=== PATIENT | female | born 1965 | race Caucasian/White ===

== ENCOUNTER → 2017-04-06 | Outpatient (CLI) | payer MEDICARE, OTHER | LOC: SL 20:30 | DX: G47.30 Sleep apnea, unspecified (principal); R09.02 Hypoxemia; E66.9 Obesity, unspecified ==

== ENCOUNTER → 2017-04-20 | Outpatient (CLI) | payer MEDICARE, OTHER | LOC: SL 20:30 | DX: R09.2 Respiratory arrest (principal); J44.9 Chronic obstructive pulmonary disease, unspecified ==

== ENCOUNTER → 2017-05-12 | Outpatient (CLI) | payer MEDICARE, OTHER | LOC: SL 21:30 | PROVIDERS: ATTEND Internal Medicine Pulmonary Disease | DX: G47.33 Obstructive sleep apnea (adult) (pediatric) (principal) ==

== ENCOUNTER → 2017-05-17 | Outpatient (CLI) | payer MEDICARE, OTHER | LOC: SL 20:38 | DX: G47.33 Obstructive sleep apnea (adult) (pediatric) (principal) ==

== ENCOUNTER 2018-04-18 21:08 | Emergency (ER) | payer MEDICARE, MEDICAID ==
--- NOTE | 2018-04-18 21:23 | ED.PDOC ---
History of Present Illness - General Chief Complaint: General Stated Complaint: rt foot pain, edema Time Seen by Provider: 04/18/18 21:17 Source: patient Exam Limitations: no limitations - History of Present Illness Initial Comments: Yamile Cruz 52 y/o female brought by EMS with sharp pain right leg and swelling for the last one week.She is presently at [facility] for rehab after a closed head injury in Aug 2017 was comatose [place] [facility] where she was placed on ventilator and tracheostomy was done but gradually weaned off vent and tracheostomy..Patient has a hard time recalling incident stated fell 3 x in one day then the last fall made her unresponsive..Had been ambulating at [facility].Medical records at [facility] -showed hx of HTN,DM,CVA unspecified,ischemic encephlopathy,TAYA.also stated unable to sllep at night since pain at the soles of both feet and also both legs gets restless.Patient given Lovenox 40 mg SQ lovenox daily at [facility] Timing/Duration: other - one week Severity: moderate Improving Factors: nothing Worsening Factors: nothing Associated Symptoms: other - see hpi Allergies/Adverse Reactions: Allergies Ciprofloxacin [From Cipro] Allergy (Verified 04/18/18 21:29) Ketorolac Tromethamine [From Toradol] Allergy (Verified 04/18/18 21:29) Sulfamethoxazole w/Trimethoprim [From Bactrim] Allergy (Verified 04/18/18 21:29) Review of Systems - Review of Systems Constitutional: States: no symptoms reported EENTM: States: no symptoms reported Respiratory: States: no symptoms reported Cardiology: States: no symptoms reported Gastrointestinal/Abdominal: States: no symptoms reported Genitourinary: States: no symptoms reported Musculoskeletal: States: see HPI Skin: States: no symptoms reported Neurological: States: see HPI Past Medical History (General) - Patient Medical History Hx Stroke: Yes Hx Hypertension: Yes Hx Diabetes: Yes Hx Cancer: Yes - right kidney in remission Hx Other PMH: Yes - taya,ischemic encephalopathy Surgical History: other - bilateral hip,hysterectomy,hernia repair,nephrectomy righ Family Medical History - Family History Mother Family History: Unknown Hx Family Diabetes: Yes - dad Hx Family Cancer: Yes - brain -mom Physical Exam - Physical Exam General Appearance: Alert, Comfortable, No apparent distress Eye Exam: bilateral normal Ears, Nose, Throat: hearing grossly normal, normal ENT inspection, normal pharynx Neck: non-tender, full range of motion, supple Respiratory: chest non-tender, lungs clear, normal breath sounds Cardiovascular/Chest: normal peripheral pulses, regular rate, rhythm, no murmur Peripheral Pulses: radial,right: 2+, radial,left: 2+ Gastrointestinal/Abdominal: non tender, soft Back Exam: no CVA tenderness, no vertebral tenderness Extremity: no calf tenderness, pedal edema - right >left leg;no venous cords palpated ,negative Homans sign both legs Neurologic: alert, oriented x 3 Skin Exam: normal color, warm/dry Progress - Progress Progress: 04/18/18 22:27 Vital Signs - 8 hr 04/18/18 21:20 Temperature 98.2 F Pulse Rate [ 82 left] Respiratory 18 Rate Blood Pressure 124/90 [left] O2 Sat by Pulse 95 Oximetry - EKG/XRAY/CT CT Ordered: Yes - CTA-chest:no central or segmental PE Departure - Departure Clinical Impression: Leg pain, bilateral, Swelling of both lower extremities Time of Disposition: 01:40 Disposition: Discharge to SNF Condition: Fair Departure Forms: ED Discharge - Pt. Copy, Patient Portal Self Enrollment Referrals: XANDER BLANCA [Primary Care Provider] - 1-2 Weeks Additional Instructions: Continue with all home medications;Scheduled for bilateral Venous doppler both lower extremities outpatient 19 April 2018 at [address] [facility] [place]-X-ray dept.
[2018-04-18] MEDS ORDERED: fentaNYL CITRATE INJ 50 MCG/ML AMP IV ONE (21:49)
[2018-04-18 22:54] VITALS: O2SAT 97
[2018-04-18] MEDS ORDERED: SODIUM CHLORIDE 0.9% 1000ML 500 ML IVS ONE (23:42)
--- NOTE | 2018-04-18 23:55 | CT ---
EXAM DESCRIPTION: CTA Chest CLINICAL HISTORY: elevated d-dimer COMPARISON: None. TECHNIQUE: Axial CT images of the chest were acquired after the administration of intravenous contrast. Coronal and sagittal reconstructions were obtained. 3-D postprocessing was acquired at an independent workstation. This exam was performed according to our departmental dose-optimization program which includes use of Automated Exposure Control, adjustment of the mA and/or kV according to patient size and/or use of iterative reconstruction technique. FINDINGS: Neck base: Unremarkable. Mediastinum: Unremarkable. Lymph Nodes: No lymphadenopathy. Heart and pericardium: No right heart strain or pericardial effusion. Aorta: Unremarkable. Pulmonary Artery: No central or segmental pulmonary embolism. Suboptimal evaluation of subsegmental pulmonary arterial vessels secondary to motion. Central Airways: Patent. Pleura: No pneumothorax or pleural effusion. Lungs: Linear atelectasis of the lingula. Lungs otherwise clear. Upper abdomen: 1.5 cm low-attenuation lesion within the right hepatic lobe, likely a small cyst or hemangioma. Otherwise unremarkable upper abdomen. Bones and soft tissues: No acute osseous or soft tissue abnormalities. IMPRESSION: No central pulmonary embolism. Suboptimal evaluation of smaller branch vessels secondary to motion. Electronically signed by: Skip Ramirez MD 04/18/2018 11:53 PM MERCHANDISE APPRAISER
[2018-04-19 01:35] VITALS: BP 136/74
[2018-04-19 02:03] VITALS: TEMP 97.8
== END 2018-04-19 01:55 ==
LOC: ER 21:08
DX: M79.604 Pain in right leg (principal); M79.605 Pain in left leg; M79.89 Other specified soft tissue disorders; I10 Essential (primary) hypertension; E11.9 Type 2 diabetes mellitus without complications; Z86.73 Personal history of transient ischemic attack (TIA), and cerebral infarction without residual deficits; Z88.1 Allergy status to other antibiotic agents; Z88.2 Allergy status to sulfonamides
CPT/HCPCS: 36415; 71275; 80048; 80076; 82550; 82553; 83880; 84443; 84484; 84550; 85025; 85379; 85610; 85730; J3010; J7030

== ENCOUNTER → 2018-04-19 | Outpatient (CLI) | payer MEDICARE, MEDICAID ==
--- NOTE | 2018-04-19 10:55 | US ---
EXAM DESCRIPTION: Venous,Lower Extremity RT: ULTRASOUND. CLINICAL HISTORY: BILATERAL LOWER EXTREMITY PAIN AND SWELLING COMPARISON: None Available. TECHNIQUE: Chance-scale and doppler sonographic evaluation of the deep venous system of the right lower extremity. FINDINGS: Doppler evaluation shows normal color flow and normal phasicity and augmentation of the right common femoral vein, femoral vein, popliteal vein, greater saphenous vein, peroneal, anterior and posterior tibial vein. The right lower extremity deep veins showed normal occlusion with transducer pressure. Chance-scale survey showed no echogenic thrombus within these veins. IMPRESSION: 1. Duplex ultrasound evaluation of the right lower extremity deep venous system showing no evidence of thrombosis. Electronically signed by: Arvin Dutton MD 04/19/2018 10:53 AM DUST COLLECTOR OPERATOR
--- NOTE | 2018-04-19 10:56 | US ---
EXAM DESCRIPTION: Venous,Lower Extremity LT: ULTRASOUND. CLINICAL HISTORY: BILATERAL LOWER EXTREMITY PAIN AND SWELLING COMPARISON: None Available. TECHNIQUE: Chance-scale and doppler sonographic evaluation of the deep venous system of the left lower extremity. FINDINGS: Doppler evaluation shows normal color flow and normal phasicity and augmentation of the left common femoral vein, femoral vein, popliteal vein, greater saphenous vein, peroneal, and posterior tibial vein. The left lower extremity deep veins showed normal occlusion with transducer pressure. Chance-scale survey showed no echogenic thrombus within these veins. IMPRESSION: 1. Duplex ultrasound evaluation of the left lower extremity deep venous system showing no evidence of thrombosis. Electronically signed by: Arvin Dutton MD 04/19/2018 10:54 AM ADOLESCENT SPECIALIST
== END ==
LOC: RAD 09:06
PROVIDERS: ATTEND Family Medicine
DX: R60.0 Localized edema (principal)